=== PATIENT | female | born 1995 | race Caucasian/White ===

== ENCOUNTER 2025-01-17 09:32 | Outpatient (AMB) | payer OTHER, SELFPAY ==
--- NOTE | 2025-01-17 09:34 | MHC.OFFWIV ---
Intake Vital Signs 01/17/25 09:40 Height 5 ft 6 in Weight 211 lb BMI 34.1 BP 110/68 Blood Pressure Location Rt brachial Position Sitting Respiration 12 Pulse 90 Pulse Source Pulse Oximeter Temp 97.5 F Temp Source Oral Pulse Oximetry (%) 98 Oxygen Delivery Method Room Air Intake Visit Reasons: Lower back pain Intake Note: Patient c/o lower back px, and constipation x 10 days. Patient went to urgent care last Friday and came out with uti and patient is finishing up antibiotics this Friday but patient feels it has gotten worse. 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 Allergies No Known Allergies Allergy (Verified 01/17/25 09:47) Medication List - Last Reconciled 01/17/25 by ELSLIE Jama-ALVARADO nitrofurantoin monohyd/m-cryst 100 mg 1 cap PO BID sertraline 50 mg PO DAILY Do you need a note to return to daycare/school/sports/work: No HPI HPI Comments History of Present Illness Details 29 y/o f here today w/ c/o low back pain 10 days ago felt bloated, constipated, Urinary urgency Went to UC told of UTI , given empiric AB & Pyridium Will complete Friday (Nitrofurantoin) Now peeing and pooping normally ; although admits diarrhea (likely r/t abt) Now she has low back pain, transverse, radiates into RLQ Denies hx of renal stones, hematuria, fever, chills, n/v. Using heating pad and has chills when she is off this Using APAP w/o relief . Nomral periods, no chance of PCP Dr Cummins Exam Awake alert, tearful d/t pain scleras noncteric MMM RRR No CVAT Abd + suprapubic tenderness w/o rebound, no gaurding, rigidity or peritoneal signs; hypoactive bs x 4 Neuro exam WNL; no spinal or paraspinal tenderness Skin pink, warm, dry Plan Check renal labs, urine and renal US to r/o pyelo and/or stone Cont ABT and OTC analgesics at this time She will be contacted w/ results and plan of care once the testing is complete. Total time spent caring for the patient today was 30 minutes. This includes time spent before the visit reviewing the chart, time spent during the visit, and time spent after the visit on documentation, reviewing laboratory results, diagnostic imaging, medications, performing a medically necessary evaluation, counseling on diagnoses, care coordination, ordering appropriate tests, ordering appropriate medications, review of tests performed by other providers, reporting test results with the patient, communication with other healthcare providers. [facility] Social History Patient Tobacco Use Status: Never used Tobacco Physical Exam Vital Signs: Last Vital Signs Temp 97.5 F 01/17/25 09:40 Pulse 90 01/17/25 09:40 Resp 12 01/17/25 09:40 BP 110/68 01/17/25 09:40 Pulse Ox 98 01/17/25 09:40 Oxygen Delivery Method Room Air 01/17/25 09:40 BMI result Body Mass Index 34.1 Assessment & Plan Assessment & Plan (1) Low back pain: Code(s): M54.50 - Low back pain, unspecified Qualifiers: Chronicity: acute Back pain laterality: right Sciatica presence: without sciatica Qualified Code(s): M54.50 - Low back pain, unspecified (2) Dysuria: Code(s): R30.0 - Dysuria (3) UTI (urinary tract infection): Code(s): N39.0 - Urinary tract infection, site not specified Qualifiers: Urinary tract infection type: acute cystitis Hematuria presence: without hematuria Qualified Code(s): N30.00 - Acute cystitis without hematuria Plan . Orders: Orders UA CC w/rflx Micro + Cult Today M54.50 - Low back pain, unspecified, R30.0 - Dysuria Blood Urea Nitrogen Today M54.50 - Low back pain, unspecified, R30.0 - Dysuria Creatinine Today M54.50 - Low back pain, unspecified, R30.0 - Dysuria US renal BI Today M54.50 - Low back pain, unspecified, R30.0 - Dysuria Coding Level of Care Code Est Pt Level 4 (95141) Diagnoses Acute right-sided low back pain without sciatica M54.50 Chronicity: acute Back pain laterality: right Sciatica presence: without sciatica Dysuria R30.0 Acute cystitis without hematuria N30.00 Urinary tract infection type: acute cystitis Hematuria presence: without hematuria
[2025-01-17 09:40] VITALS: BP 110/68; PULSE 90; RESP 12; TEMP 36.4; O2SAT 98; BMI 34.1
--- OUTSIDE RECORDS SUMMARY | 2025-01-17 10:36 | XMS_ITS | Clinical Summary ---
Author Organization [facility] Address [address] [place] [address] Care Team Providers Care Drill Press Operator Numerical Control Name Role Phone Nely Oconnell MD Primary Care Provider [phone] Allergies No known active allergies Medications Medication Sig Dispensed Refills Start Date End Date Status sertraline (ZOLOFT) 50 MG tablet Take 50 mg by mouth daily. 07/27/2023 Active loratadine (CLARITIN) 10 MG tablet Take 10 mg by mouth daily. Active Social History Tobacco Use Types Packs/Day Years Used Date Smoking Tobacco: Never Smokeless Tobacco: Never Tobacco Cessation:Counseling Given: Not Answered Alcohol Use Standard Drinks/Week Comments Never 0 (1 standard drink = 0.6 oz pur e alcohol) Sex and Gender Information Value Date Recorded Sex Assigned at Not on file Gender Identity Not on file Sexual Orientation Not on file Last Filed Vital Signs Vital Sign Reading Time Taken Comments Blood Pressure 110/75 11/01/2023 4:06 PM EST Pulse 113 11/01/2023 4:06 PM EST Temperature 37.4 ??C (99.3 ??F) 11/01/2023 4:06 PM ES T Respiratory Rate 16 09/13/2023 2:39 PM EST Oxygen Saturation 99% 11/01/2023 4:06 PM EST Inhaled Oxygen Concentration - - Weight - - Height - - Body Mass Index - - Plan of Treatment Health Maintenance Due Date Last Done Comments Hepatitis C Virus Screening 1993 HIV Screening 2006 DTaP/Tdap/Td Vaccines (1 - Tdap) 2012 Hepatitis B Vaccines (1 of 3 - 19+ 3-dose series) 2012 Pap Smear (Ages 21-65) 2014 Influenza Vaccine 05/06/2024 COVID-19 Vaccine ( - 2023-2 5 season) 2024 HPV Vaccines Aged Out No longer eligi ble based on patient's age to complete this topic Pneumococcal Vaccine: Pediat carolyn (0-5 Years) and At-Risk Patients (6 to 49 Years) Aged Out No longer eligible b ased on patient's age to complete this topic Care Teams Drill Press Operator Numerical Control Relationship Specialty Start Date End Date Nely Oconnell MD [address] [place] [address] MOSES Abbott [phone] PCP - General Internal Medicine 11/01/23
--- OUTSIDE RECORDS SUMMARY | 2025-01-17 10:36 | XMS_ITS ---
Author Name [facility] Organization Unknown History of Medication Use Medication Directions Dispensed Refills Start Date End Date Stat us sertraline (ZOLOFT) 50 MG tablet Take 50 mg by mouth daily. 07/27/2023 active oseltamivir (TAMIFLU) 75 MG capsule Take 1 capsule (75 mg total) by mouth 2 (two) times a day. 11/01/2023 11/07/2023 active Problems Problem Status Onset Date Problem Type Date of Resoluti on Source Influenza [facility] En[facility] Encounter Type Encounter Reason Primary Diagnosis Location Date Ambulatory Influenza due to unidentified influenza virus with other respiratory manifestations Influenza due to unidentified influenza virus with other respiratory manifestations [facility] 11/01/2023 Ambulatory Acute pharyngitis, unspecified Acute pharyngitis, unspecified [facility] 09/13/2023 Care Team Organization Name Specialty Phone Email Start Date End Da saundra [facility] Nely Oconnell [facility] 11/01/2023 [facility] 09/13/2023 12/22/2024 [facility] 09/13/2023 09/13/2023
== END 2025-01-17 09:55 | disposition home or self-care (01) ==
LOC: HO.HMCFM 09:33
PROVIDERS: PCP Internal Medicine; Visit Provider Nurse Practitioner Family
DX: M54.50 Low back pain, unspecified (principal); R30.0 Dysuria; N30.00 Acute cystitis without hematuria

== ENCOUNTER → 2025-01-17 09:32 | Outpatient (BNVA) | payer OTHER, SELFPAY | PROVIDERS: PCP Internal Medicine; Visit Provider Nurse Practitioner Family | DX: Z13.89 Encounter for screening for other disorder (principal) ==

== ENCOUNTER 2025-01-17 10:22 | Outpatient (REF) | payer OTHER, SELFPAY ==
[2025-01-17 11:47] LABS: Appearance Urine Clear; Color Urine Yellow; Glucose Urine UA Negative (Negative); Leukocyte Esterase Urine Trace (Negative); Nitrite Urine Negative (Negative); PH 5.5 (5.0-9.0); UMIC TRIGGER UACC YES; Urine Blood Negative (Negative); Urine Ketones Negative (Negative); Urine Protein Negative (Neg-Trace)
--- OUTSIDE RECORDS SUMMARY | 2025-01-17 11:51 | XMS_ITS | Clinical Summary ---
Author Organization [facility] Address [address] [place] [address] Care Team Providers Care Night Club Manager Name Role Phone Nely Oconnell MD Primary Care Provider [phone] Allergies No known active allergies Medications Medication [...] age to complete this topic Care Teams Night Club Manager Relationship Specialty Start Date End Date Nely Oconnell MD [address] [place] [address] MOSES Abbott [phone] PCP - General Internal Medicine 11/01/23
[2025-01-17 11:55] LABS: Bacteria Urine 2+ (None Seen); Hyaline Casts Urine 0-2 /LPF (0-2); RBC Urine 0-2 /HPF (0-2); WBC Urine 0-5 /HPF (0-5)
[2025-01-17 12:16] LABS: Blood Urea Nitrogen 15 mg/dL (9-16); Estimated Glomerular Filt Rate > 60
== END 2025-01-17 10:23 | disposition home or self-care (01) ==
LOC: HO.WFDLDS 10:22
PROVIDERS: Visit Provider Nurse Practitioner Family
DX: M54.50 Low back pain, unspecified (principal); R30.0 Dysuria
CPT/HCPCS: 36415; 81001; 82565; 84520

== ENCOUNTER 2025-01-17 11:10 | Outpatient (REF) | payer OTHER, SELFPAY ==
--- NOTE | ~2025-01-17 | US_ITS ---
EXAMINATION: US KIDNEY BILATERAL HISTORY: M54.50 - Low back pain, unspecified TECHNIQUE: Real-time grayscale ultrasound imaging of the kidneys was performed and images were reviewed. COMPARISON: There are no prior studies for comparison. FINDINGS: Right kidney: The right kidney measures 12.4 x 4.3 x 5.2 cm. Renal parenchymal echotexture and thickness are normal. There are no masses. There is no hydronephrosis or renal calculi. Left Kidney: The left kidney measures 13.0 x 4.6 x 5.5 cm. Renal parenchymal echotexture and thickness are normal. There are no masses. There is no hydronephrosis or renal calculi. US/US renal BI IMPRESSION: Unremarkable renal ultrasound. Electronically signed by: Dionisio James MD 01/17/2025 12:10 PM EDT
--- OUTSIDE RECORDS SUMMARY | 2025-01-17 13:12 | XMS_ITS | Clinical Summary ---
Author Organization [facility] Address [address] [place] [address] Care Team Providers Care Commodity Industry Analyst Name Role Phone Nely Oconnell MD Primary Care Provider Allergies No known active allergies Medications Medication [...] age to complete this topic Care Teams Commodity Industry Analyst Relationship Specialty Start Date End Date Nely Oconnell MD [address] [place] [address] MOSES Abbott [phone] PCP - General Internal Medicine 11/01/23
== END 2025-01-17 11:11 | disposition home or self-care (01) ==
LOC: HO.US 11:10
PROVIDERS: Visit Provider Nurse Practitioner Family
DX: M54.50 Low back pain, unspecified (principal); R30.0 Dysuria
CPT/HCPCS: 76775

== ENCOUNTER → 2025-01-17 11:15 | Outpatient (BNV) | payer OTHER, SELFPAY | PROVIDERS: Visit Provider Radiology Diagnostic Radiology | DX: M54.50 Low back pain, unspecified (principal) | CPT/HCPCS: 76775 ==

== ENCOUNTER 2025-02-24 15:42 | Outpatient (AMB) | payer OTHER, SELFPAY ==
--- NOTE | 2025-02-24 15:46 | A.OFFPC_ITS ---
Vital Signs 02/24/25 15:53 Height 5 ft 6 in Weight 202 lb 2 oz BMI 32.6 BP 106/64 Blood Pressure Location Lt brachial Position Sitting Pulse 72 Pulse Source Pulse Oximeter Temp 98.6 F Temp Source Temporal Artery Scan Pulse Oximetry (%) 98 Oxygen Delivery Method Room Air Intake Visit Reasons: Kidney issues Intake Note: Svitlana presents in the office today for a follow up to kidney issues. Allergies Seasonal Allergies Allergy (Verified 02/24/25 15:48) Runny Nose Tobacco use date assessed: 02/24/25 Dental Screening Dental Screen Date: 02/24/25 Did you have a dental visit in the last 12 months?: Yes Did you have a dental problem in the last 6 months where you did not have access to dental care?: No Was dental information given to patient?: Patient has dentist HPI HPI Comments History of Present Illness Details This is a 29-year-old female with a past medical history of gestational diabetes presenting to [facility]. She transferred from Dr. Oconnell when she was at [facility]. She was seen a month ago at the walk-in for dysuria and back pain. She had a negative renal ultrasound. Renal function and urinalysis were negative. Since that time she started to exercise regularly including yoga and walking and following a healthier anti-inflammatory diet, and her symptoms resolved. She feels so much better in general. She lost 10 lb. She plans to continue this to get to a goal weight of 175 lb gradually. She is up-to-date with [facility]. Eye and dental exams are up-to-date. Anxiety is treated with sertraline 50 mg daily. It works very well. There is no family history of colon cancer. She had a colonoscopy at age 24 due to inflamed hemorrhoids causing bleeding. Vaccines are up-to-date. 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 ROS: Constitutional: No unexplained weight loss, fever, chills, fatigue or night sweats. Eyes: No vision changes, blurry vision, double vision, eye pain, eye redness, eye discharge. ENT: No hearing loss, sneezing, congestion, runny nose or sore throat. Respiratory: No shortness of breath, cough or sputum production. Cardiovascular: No chest pain, chest pressure or chest discomfort. No palpitations or pedal edema. Gastrointestinal: No anorexia, nausea, vomiting or diarrhea. No abdominal pain or blood in stool. Genitourinary: No dysuria, hematuria, urinary frequency. Neurologic: No headache, dizziness, syncope, unilateral weakness, ataxia, numbness or tingling in the extremities. Musculoskeletal: No muscle pain, back pain, joint pain or swelling. Hematologic/Lymphatics: No bleeding or bruising. No painful lymph nodes. Skin: No rash or itching. Endocrine: No cold or heat intolerance. No polyuria or polydipsia. Psychiatric: No depression or anxiety. No SI/HI. Physical exam: Constitutional: Alert, in no distress. Head: Normocephalic. Eyes: Pupils are equal, round and reactive to light. Extraocular muscles intact. Ear, Nose and Throat: Canals clear. TMs normal. Normal nasal mucosa. No nasal discharge. No oral lesions. Neck: Supple, Full range of motion. No lymphadenopathy. No palpable thyroid masses. Respiratory: Clear to auscultation. Cardiovascular: S1 S2 regular. No murmurs. Gastrointestinal: Abdomen soft, non-tender, non-distended. Normal bowel sounds. No palpable masses. Genitourinary: No costovertebral angle tenderness. Neurologic: No focal neurological deficits. Symmetric patellar reflexes. Moves all extremities spontaneously. Sensation intact bilaterally. Skin: No rashes or lesions. Musculoskeletal: No gross deformities. Normal range of motion. Spine nontender. Extremities: Warm and well perfused. No clubbing, cyanosis or edema. Intact peripheral pulses bilaterally. Psychiatric: Normal mood and affect [facility] Medical History (Updated 02/24/25 @ 16:21 by MARIANA Fontaine) Routine physical examination Screening for cardiovascular condition Gestational diabetes Social History (Updated 02/24/25 @ 15:51 by Yuliet Luciano MA) Housing: House Alcohol intake: current Patient Tobacco Use Status: Never used Tobacco e-Cigarette/Vaping Use: Never Used Second Hand Smoke Exposure: No Substance Use Type: Marijuana service: No Current occupational status: employed Current occupation: Teacher Current occupational exposures/hazards: No Cognitive needs: No Hearing needs: No Vision needs: No Questionnaire PHQ-9 Over the last 2 weeks, how often have you been bothered by any of the following problems? 1. Little interest or pleasure in doing things: not at all 2. Feeling down, depressed, or hopeless: not at all 3. Trouble falling or staying asleep, or sleeping too much: not at all 4. Feeling tired or having little energy: not at all 5. Poor appetite or overeating: not at all 6. Feeling bad about yourself - or that you are a failure or have let yourself or your family down: not at all 7. Trouble concentrating on things, such as reading the newspaper or watching television: not at all 8. Moving or speaking so slowly that other people could have noticed. Or the opposite - being so fidgety or restless that you have been moving around a lot more than usual: not at all 9. Thoughts that you would be better off or of hurting yourself in some way: not at all Total score: 0 Depression Screening Interpretation: Negative Depression Screening Done: Yes 40043 - PHQ-9 Billing: Yes Source: Developed by Drs. Dionisio Barraza, Ally Barnett, Shahab Gracia and colleagues, with an educational alicia from [employer]. Thrive Questionnaire Date Thrive assessed: 02/24/25 I am a: Patient What is your living situation today?: I have a steady place to live Within the past 12 months, did the food you bought not last and you didn't have the money to get more?: Never true Within the past 12 months, did you worry whether your food would run out before you got money to buy more?: Never true Do you have trouble paying for medicines?: No Do you have trouble getting transportation to medical appointments?: No Do you have trouble paying your heating and electricity bill?: No Do you have trouble taking care of your child, family member or friend?: No Do you have trouble with day-to-day activities such as bathing, preparing meals, shopping, managing finances, etc.?: No Are you currently unemployed and looking for a job?: No Are you interested in more education?: No Please select the resources that you would like help with: None Currently or been in a relationship where the following occur: No concerns reported THRIVE Score: 0 AUDIT C Alcohol Use Questionnaire (AUDIT-C) 1. How often do you have a drink containing alcohol?: Monthly or less 2. How many drinks containing alcohol do you have on a typical day when you are drinking?: 1 or 2 3. How often do you have six or more drinks on one occasion?: Never Total Score: 1 Score Reviewed/Action Taken: No AMMY-7 AMB Questionnaire AMMY-7 Date AMMY - 7 assessed: 02/24/25 Feeling nervous, anxious, or on edge: 1 = Several days Not being able to stop or control worryin = Not at all Worrying too much about different things: 1 = Several days Trouble relaxin = Not at all Being so restless that it is hard to sit still: 0 = Not at all Becoming easily annoyed or irritable: 1 = Several days Feeling afraid as if something awful might happen: 1 = Several days Total AMMY-7 score (0-4 normal; 5-9 mild; 10-14 moderate; 15-21 severe): 4 Source: Developed by Drs. Dionisio Barraza, Ally Barnett, Shahab Gracia and colleagues, with an educational alicia from [employer]. AMMY-7 Assessment Billing AMMY-7 Assessment Tool: AMMY-7 Assessment 39649 Physical exam (Primary Care) Vital Signs: Last Vital Signs Temp 98.6 F 02/24/25 15:53 Pulse 72 02/24/25 15:53 BP 106/64 02/24/25 15:53 Pulse Ox 98 02/24/25 15:53 Oxygen Delivery Method Room Air 02/24/25 15:53 BMI result Body Mass Index 32.6 Tobacco/Smoking Status: Tobacco use Status Tobacco use date assessed 02/24/25 02/24/25 15:57 Patient Tobacco Use Status Never used Tobacco 02/24/25 15:51 e-Cigarette/Vaping Use Never Used 02/24/25 15:57 PHQ-9: PHQ-9 Score PHQ-9: Total score 0 02/24/25 15:57 Depression Screening Interpretation: Negative Thrive Assessment: Date of Thrive Assessment Date Thrive assessed 02/24/25 02/24/25 15:57 Currently or been in a relationship where the following occur: No concerns reported Coding Level of Care Code New Pt Prev Care 18-39yr(73065 Diagnoses Routine physical examination Z00.00 Additional Codes AMMY-7 Assessment Billing - AMMY-7 Assessment Tool: AMMY-7 Assessment 55350 ([id number]) PHQ-9 - 93730 - PHQ-9 Billing: Yes ([id number]) Assessment & Plan Assessment & Plan (1) Routine physical examination: Code(s): Z00.00 - Encounter for general adult medical examination without abnormal findings Category: Medical Plan: Patient is seen today for a routine physical. As part of this visit we reviewed the following issues, which are considered and essential part of preventative health in this age group: - Breast Cancer screening - Annual Head Mva Reactor Operator exam - Blood pressure screening - Cholesterol screening - Osteoporosis prevention including calcium/vitamin D intake, weight bearing exercise & smoking cessation - Nutritional and exercise counseling - Counseling of injury prevention including fire prevention, smoke alarms and seat belt usage - Screening for depression - Education about skin cancer - Recommendations about immunizations - Recommendation of an eye exam - Screening for substance abuse - Genetic cancer risk screening Plan Schedule physical exam in 1 year. Orders: Orders Comprehensive Met. Panel Today O24.419 - Gestational diabetes mellitus in , unspecified control, Z13.6 - Encounter for screening for cardiovascular disorders Lipid Panel Today O24.419 - Gestational diabetes mellitus in , unspecified control, Z13.6 - Encounter for screening for cardiovascular disorders Hemoglobin A1c Today O24.419 - Gestational diabetes mellitus in , unspecified control, Z13.6 - Encounter for screening for cardiovascular disorders Complete Blood Count no Diff Today O24.419 - Gestational diabetes mellitus in , unspecified control, Z13.6 - Encounter for screening for cardiovascular disorders TSH reflex Free T4 Today O24.419 - Gestational diabetes mellitus in , unspecified control, Z13.6 - Encounter for screening for cardiovascular disorders Medications: New sertraline 50 mg PO DAILY 90 tabs 3RF
[2025-02-24 15:53] VITALS: BP 106/64; PULSE 72; TEMP 37; O2SAT 98; BMI 32.6
== END 2025-02-24 16:18 | disposition home or self-care (01) ==
LOC: HO.HMCFM 15:43
PROVIDERS: PCP Physician Assistant Medical; Visit Provider Physician Assistant Medical
DX: Z00.00 Encounter for general adult medical examination without abnormal findings (principal)

== ENCOUNTER → 2025-02-24 15:42 | Outpatient (BNVA) | payer OTHER, SELFPAY | PROVIDERS: PCP Physician Assistant Medical; Visit Provider Physician Assistant Medical | DX: Z00.00 Encounter for general adult medical examination without abnormal findings (principal); Z86.32 Personal history of gestational diabetes | CPT/HCPCS: 96127 ==

== ENCOUNTER 2025-03-14 09:21 | Outpatient (REF) | payer OTHER, SELFPAY ==
--- NOTE | ~2025-03-14 | XR_ITS ---
EXAMINATION: XR LUMBAR SPINE 2-3 VIEWS HISTORY: M54.9 - Dorsalgia, unspecified COMPARISON: There are no prior studies for comparison. FINDINGS: AP, lateral, and coned down views of the lumbar spine are submitted. Osseous mineralization is normal. Five nonrib-bearing lumbar vertebral bodies are identified, maintaining normal height and alignment without evidence of fracture or spondylolisthesis. The intervertebral disc spaces are preserved. The posterior elements are intact. The visualized paraspinal soft tissues are unremarkable. XR/XR lumbar spine 2-3V IMPRESSION: Unremarkable examination of the lumbar spine. Electronically signed by: Dionisio James MD 03/14/2025 10:21 AM EDT
== END 2025-03-14 09:22 | disposition home or self-care (01) ==
LOC: HO.HMGCX 09:21
PROVIDERS: PCP Physician Assistant Medical; Visit Provider Physician Assistant
DX: M54.9 Dorsalgia, unspecified (principal)
CPT/HCPCS: 72100

== ENCOUNTER 2025-03-14 09:21 | Outpatient (AMB) | payer OTHER, SELFPAY ==
--- NOTE | 2025-03-14 09:20 | AM.OFFWIN_ITS ---
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 Patient is walking and sitting crooked. This has been happening since november. Patient Tobacco Use Status: Never used Tobacco Manufacturers Agent Required: No Accompanied by: Self / Same As Patient Allergies Seasonal Allergies Allergy (Verified 03/14/25 09:27) Runny Nose Do you need a note to return to daycare/school/sports/work: No HPI HPI Comments History of Present Illness Details History of Present Illness - The patient is a 29-year-old female pr esenting with acute low back pain and suspected lumbar spine injury. - She reports recurrent episodes of acut e low back pain since November, exacerbated by lifting activities. - During the most recent episode, the pa den experienced immediate back pain with functional impairment. She had bent over to medicinal plant picker her child. She states that she instantly felt a snap and a pop in the right low back. - The patient describes have to lean tow ards the left side due to her pain on the right and compensatory discomfort in the right hip. - Management efforts have included weigh t loss, yoga, physical activities, and non-prescription analgesics, partially alleviating symptoms. - Her PCP told her if her symptoms milagros nued she would need an x-ray. - She denies CP, SOB, abd pain, n/v/d, d ysuria, hematuria, fever, or chills. She denies trauma or fall. She denies saddle anesthesia, numbness, tingling, or incontinence. Physical Exam General: Cooperative, healthy appearing, uncomfortable, no acute distress and well developed Neck: Normal visual inspection and Yes full ROM Respiratory: Normal respiratory effort and able to speak in complete sentences. Clear to auscultation bilaterally Cardiovascular: Regular rate and rhythm. Normal S1 and S2 GI: Normal to inspection. Soft to palpation and nontender. No guarding or rebound tenderness noted. No CVA tenderness noted. Skin: No rashes or lesions noted Neuro: Patient oriented x3. Sensation is intact. Extremities: Normal to inspection. FROM of the UE and LE bilaterally. Musculoskeletal: Decrease ROM of the spine. Decrease flexion and extension due to pain. No midline spinous tenderness noted in the thoracic and lumbar region. No step off noted. TTP of the lumbar paraspinous and paravertebral muscles on th e right. No SI joint tenderness noted. SLR negative bilaterally. Strength is 5/5 on the LE bilaterally. DTR are 1+. Ambulates with a steady gait. Patient was informed and verbally consented to the use of an ambient scribe for clinic note documentation during this visit. [facility] Medical History (Updated 02/24/25 @ 16:21 by MARIANA Fontaine) Routine physical examination Screening for cardiovascular condition Gestational diabetes Social History (Updated 02/24/25 @ 15:51 by Yuliet Luciano MA) Housing: House Alcohol intake: current Patient Tobacco Use Status: Never used Tobacco e-Cigarette/Vaping Use: Never Used Second Hand Smoke Exposure: No Substance Use Type: Marijuana service: No Current occupational status: employed Current occupation: Teacher Current occupational exposures/hazards: No Cognitive needs: No Hearing needs: No Vision needs: No Review of Systems Const All systems reviewed & are unremarkable except as noted in HPI and below Physical Exam Vital Signs: Last Vital Signs Temp 98.2 F 03/14/25 09:25 Pulse 83 03/14/25 09:25 BP 110/78 03/14/25 09:25 Pulse Ox 98 03/14/25 09:25 Oxygen Delivery Method Room Air 03/14/25 09:25 BMI result Body Mass Index 32.9 Assessment & Plan Assessment & Plan (1) Low back pain: Code(s): M54.50 - Low back pain, unspecified Qualifiers: Chronicity: acute Back pain laterality: right Sciatica presence: without sciatica Qualified Code(s): M54.50 - Low back pain, unspecified Plan Most likely strain vs muscle spasm vs arthritis vs sciatica Plan - I will order a lumbar spine x-ray to assess for any underlying structural pathology. - Initiate referral to physical therapy for focused rehabilitation and muscle strengthening. - Prescribe muscle relaxants to alleviate acute muscle spasms and enhance mobility. - Continue using [id number] analgesics for symptomatic relief as needed. - Instruct on maintaining activity levels with proper ergonomic practices to minimize further injury risk. -Needs f/u with her PCP. Orders: Orders XR lumbar spine 2-3V Today M54.9 - Dorsalgia, unspecified PT Evaluation and Treatment Today M54.50 - Low back pain, unspecified Medications: New naproxen 500 mg PO Q12H PRN 20 tabs 0RF pain cyclobenzaprine 5 mg PO tid PRN 21 tabs 0RF Muscle Spasm Coding Level of Care Code Est Pt Level 4 (22495) Diagnoses Acute right-sided low back pain without sciatica M54.50 Chronicity: acute Back pain laterality: right Sciatica presence: without sciatica
[2025-03-14 09:25] VITALS: BP 110/78; PULSE 83; TEMP 36.8; O2SAT 98; BMI 32.9
--- OUTSIDE RECORDS SUMMARY | 2025-03-14 09:50 | XMS_ITS | Clinical Summary ---
Author Organization [facility] Address [address] [place] [address] Care Team Providers Care Marketing Compliance Manager Name Role Phone Nely Oconnell MD Primary Care Provider Allergies No known active allergies Medications sertraline (ZOLOFT) 50 MG tablet Take 50 mg by mouth daily. 07/27/2023 Active loratadine (CLARITIN) 10 MG tablet Take 10 mg by mouth daily. Active Social History Tobacco Use Types Packs/Day Years Used Date Smoking Tobacco: Never Smokeless Tobacco: Never Tobacco Cessation:Counseling Given: Not Answered Alcohol Use Standard Drinks/Week Comments Never 0 (1 standard drink = 0.6 oz pur e alcohol) Comments Unknown Sex and Gender Information Value Date Recorded Sex Assigned at Not on file Legal Sex Female 2:32 PM EST Gender Identity Not on file Sexual Orientation [...] series) 2012 Pap Smear (Ages 21-65) 2014 COVID-19 Vaccine (2023-2 5 season) 2024 Influenza Vaccine 05/06/2025 HPV Vaccines Aged Out No longer eligi ble based on patient's age to complete this topic Pneumococcal Vaccine: Pediat carolyn (0-5 Years) and At-Risk Patients (6 to 49 Years) Aged Out No longer eligible b ased on patient's age to complete this topic Insurance [facility] Care Teams Marketing Compliance Manager Relationship Specialty Start Date End Date Nely Oconnell MD [address] [place] [address] [employer] [phone] PCP - General Internal Medicine 11/01/23
== END 2025-03-14 10:24 | disposition home or self-care (01) ==
PROVIDERS: PCP Physician Assistant Medical; Visit Provider Physician Assistant Medical
DX: M54.50 Low back pain, unspecified (principal)

== ENCOUNTER → 2025-03-14 10:02 | Outpatient (BNV) | payer OTHER, SELFPAY | PROVIDERS: PCP Physician Assistant Medical; Visit Provider Radiology Diagnostic Radiology | DX: M54.9 Dorsalgia, unspecified (principal) | CPT/HCPCS: 72100 ==

== ENCOUNTER 2025-06-07 07:35 | Outpatient (REF) | payer OTHER, SELFPAY ==
--- OUTSIDE RECORDS SUMMARY | 2025-06-07 07:37 | XMS_ITS ---
Author Name [facility] Organization Unknown History of Medication Use Medication Directions Dispensed Refills Start Date End Date Stat us oseltamivir (TAMIFLU) 75 MG capsule Take 1 capsule (75 mg total) by mouth 2 (two) times a day. 11/01/2023 11/07/2023 active sertraline (ZOLOFT) 50 MG tablet Take 50 mg by mouth daily. 07/27/2023 active Problems Problem Status Onset Date Problem Type Date of Resoluti on Source Influenza active EncounterDiagnosisAct CCT Encounters Encounter Type Encounter Reason Primary Diagnosis Location Date Ambulatory Influenza due to unidentified influenza virus with other respiratory manifestations Influenza due to unidentified influenza virus with other respiratory manifestations [facility] 11/01/2023 Ambulatory Acute pharyngitis, unspecified Acute pharyngitis, unspecified [facility] 09/13/2023 Care Team Organization Name Specialty Phone Email Start Date End Da te [facility] Nely Oconnell Primary Care 11/01/2023 [facility] 09/13/2023 12/22/2024 [facility] 09/13/2023 09/13/2023
--- OUTSIDE RECORDS SUMMARY | 2025-06-07 07:37 | XMS_ITS | Clinical Summary ---
Author Organization [facility] Address [address] [place] [address] Care Team Providers Care Professor Of Counseling Name Role Phone Nely Oconnell MD Primary Care Provider [phone] Allergies No known active allergies Medications sertraline [...] 113 11/01/2023 4:06 PM EST Temperature 37.4 C (99.3 F) 11/01/2023 4:06 PM EST Respiratory Rate 16 09/13/2023 2:39 PM EST [...] series) 2012 Pap Smear (Ages 21-65) 2014 HPV Vaccines (1 - 3-dose SCD M series) 2020 COVID-19 Vaccine (2023-2 5 season) 2024 Influenza Vaccine 05/06/2025 Pneumococcal Vaccine: Pediat carolyn (0-5 Years) and At-Risk Patients (6 to 49 Years) Aged Out No longer eligible b ased on patient's age to complete this topic Insurance [facility] Care Teams Professor Of Counseling Relationship Specialty Start Date End Date Nely Oconnell MD [address] [place] [address] [place] [employer] [phone] PCP - General Internal Medicine 11/01/23
[2025-06-07 11:11] LABS: Hematocrit 42.2 % (37.0-47.0); Hemoglobin 14.8 g/dl (12.0-16.0); Mean Corpuscular HGB Conc 35.1 g/dl (31.0-35.0); Mean Corpuscular Hemoglobin 32.7 pg (27.0-33.0); Mean Corpuscular Volume 93.2 fL (80.0-98.0); NRBC Abs Auto 0.000 X10*3/uL (0.0-0.012); NRBC Pct Auto 0.0 /100WBC (0.0-0.2); Platelet Count 195 X10*3/uL (160-400); Red Blood Count 4.53 X10*6/uL (4.20-5.50); White Blood Count 5.4 X10*3/uL (4.8-10.8)
[2025-06-07 11:27] LABS: Hemoglobin A1C 107.6353 umol/L; Total Hemoglobin (HGBA1C) 3863.8241 umol/L
[2025-06-07 12:34] LABS: Alanine Aminotransferase 29 U/L (0-31); Albumin Level 4.3 g/dL (3.5-5.0); Alkaline Phosphatase 67 U/L (39-117); Anion Gap 12 (12-20); Aspartate Amino Transferase 28 U/L (5-31); Blood Urea Nitrogen 12 mg/dL (9-16); Calcium 9.0 mg/dL (8.4-10.2); Carbon Dioxide 23 mmol/L (22-29); Chloride 110 mmol/L (96-108); Cholesterol 175 mg/dL (<200); Estimated Glomerular Filt Rate > 60; HDL Cholesterol 43 mg/dL (>40); Potassium 4.0 mmol/L (3.3-5.1); Sodium 141 mmol/L (135-145); Total Protein 6.8 g/dL (6.5-8.0); Triglycerides 126 mg/dL (<150)
== END 2025-06-07 07:36 | disposition home or self-care (01) ==
LOC: HO.WFDLDS 07:35
PROVIDERS: Visit Provider Physician Assistant Medical
DX: O24.419 Gestational diabetes mellitus in pregnancy, unspecified control (principal); Z13.6 Encounter for screening for cardiovascular disorders; Z13.29 Encounter for screening for other suspected endocrine disorder
CPT/HCPCS: 36415; 80053; 80061; 83036; 84443; 85027